=== PATIENT | female | born 1975 | race Caucasian/White ===

== ENCOUNTER → 2017-03-21 | Outpatient (CLI) | payer OTHER ==
[~2017-03-21] MED LIST: AMOXICILLIN500 MG PO; ANAPROX DS550 MG PO; CEFADROXIL500 M1 PO; CIPRO500 MG PO; CYCLOBENZAPRINE10 MG PO; GENTAMYCIN3 MG/ML OP; NAPROSYN500 MG PO; NKHM; PEN-VEE K500 MG PO; PYRIDIUM200 M1 PO; TRAMADOL HCL50 MG PO; ULTRAM50 MG PO; VICODIN ES 7501 TAB PO; ZOLOFT25 MG PO
[2017-03-21 16:06] LABS: URINE AMPHETAMINES < 1000 (1000ng/ml); URINE BARBITURATES < 200 (200ng/ml); URINE COCAINE < 300 (300ng/ml)
[2017-03-22 08:09] LABS: HEPATITIS B SURFACE AB 006395 Reactive (.)
[2017-03-22 12:06] LABS: VARICELLA-ZOSTER IGG 096206 386 index (Immune >165)
== END | disposition home or self-care (01) ==
LOC: LAB 15:31
PROVIDERS: Family Medicine
DX: Z02.0 Encounter for examination for admission to educational institution (principal)

== ENCOUNTER 2019-11-12 13:21 | Emergency (ER) | payer SELFPAY ==
[~2019-11-12] VITALS: Ht 157.4 cm; Wt 106.6 kg
[2019-11-12 13:35] VITALS: BP 115/77
[2019-11-12] MEDS ORDERED: FLONASE ALLERG9.9 ML NAS (15:25)
[2019-11-12] MEDS ORDERED: ZYRTEC10 M3 PO (15:25)
== END 2019-11-12 15:35 | disposition home or self-care (01) ==
LOC: ED 13:21
DX: B34.9 Viral infection, unspecified (principal)

== ENCOUNTER 2021-11-26 22:58 | Emergency (ER) | payer SELFPAY ==
[~2021-11-26] VITALS: Ht 157.4 cm; Wt 104.3 kg
[~2021-11-26 22:58] MED LIST changes: +FLONASE ALLERG9.9 ML NAS; +ZYRTEC10 M3 PO
[2021-11-26 23:10] VITALS: BP 167/86
[2021-11-26] MEDS ORDERED: PENICILLIN VK500 MG PO (23:12)
== END 2021-11-26 23:23 | disposition home or self-care (01) ==
LOC: ED 22:58
DX: K02.9 Dental caries, unspecified (principal)

== ENCOUNTER → 2023-04-25 | Outpatient (CLI) | payer OTHER ==
[~2023-04-25] MED LIST changes: +PENICILLIN VK500 MG PO
== END | disposition home or self-care (01) ==
LOC: LAB 12:50
PROVIDERS: ATTEND Student in an Organized Health Care Education/Training Program
DX: Z15.01 Genetic susceptibility to malignant neoplasm of breast (principal)

== ENCOUNTER → 2023-05-22 | Outpatient (CLI) | payer OTHER | END | disposition home or self-care (01) | LOC: MAMMO 05-15 10:00 | PROVIDERS: ATTEND Family Medicine | DX: Z12.31 Encounter for screening mammogram for malignant neoplasm of breast (principal) ==

== ENCOUNTER 2024-07-04 10:28 | Emergency (ER) | payer OTHER ==
[~2024-07-04] VITALS: Ht 154.9 cm; Wt 108.9 kg
[2024-07-04 11:16] VITALS: BP 140/76
[2024-07-04] MEDS ORDERED: Ondansetron Hydrochloride 4 MG/2 ML VIAL IV ONE (12:35)
[2024-07-04] MEDS ORDERED: Ketorolac Tromethamine 30 MG/ML VIAL IV ONE (12:35)
[2024-07-04] MEDS ORDERED: diphenhydrAMINE hydrochloride 50 MG/ML VIAL IV ONE (12:35)
[2024-07-04] MEDS ORDERED: SODIUM CHLORIDE 0.9% 1,000 ML IV ONE (12:35)
[2024-07-04] MEDS ORDERED: Tetracaine Hydrochloride 0.5% 4 ML BOT OPH ONE (13:25)
== END 2024-07-04 14:18 | disposition short-term general hospital (02) ==
LOC: ED 10:28
DX: H40.052 Ocular hypertension, left eye (principal); R51.9 Headache, unspecified; E87.6 Hypokalemia; F32.A Depression, unspecified; Z98.890 Other specified postprocedural states; Z98.51 Tubal ligation status

== ENCOUNTER 2025-07-30 11:46 | Emergency (ER) | payer OTHER ==
[~2025-07-30] VITALS: Ht 154.9 cm; Wt 106.6 kg
[2025-07-30 12:23] LABS: BASO # 0.0 10*3/uL (0.0-0.1); BASO % 0.3 % (0.0-1.0); EOS # 0.1 10*3/uL (0.0-0.4); EOS % 1.4 % (1.0-4.0); MEAN CELL VOLUME 94.6 fl (81.0-99.0); MEAN CORPUSCULAR HGB 32.0 pg (27.0-31.0); MEAN PLATELET VOLUME 10.8 fl (9.6-12.3); MONO # 0.5 10*3/uL (0.1-1.0); MONO % 5.6 % (3.0-9.0); NEUT # 6.3 10*3/uL (2.3-7.9); NEUT % 68.6 % (47.0-73.0); NUCLEATED RED BLOOD CELL 0.0 % (0.0-0.0); NUCLEATED RED BLOOD CELL 0.0 10*3/uL (0.0-0.0); PLATELET COUNT AUTOMATED 252 10*3/uL (130-400); RED CELL DISTRI WIDTH 12.4 % (0-14.5)
[2025-07-30 12:42] LABS: BUN 13 mg/dl (9-23)
[2025-07-30 14:06] VITALS: BP 112/70
== END 2025-07-30 16:14 | disposition home or self-care (01) ==
LOC: ED 11:46
PROVIDERS: Nurse Practitioner Family
DX: R07.89 Other chest pain (principal); E66.01 Morbid (severe) obesity due to excess calories; F32.A Depression, unspecified